=== PATIENT | female | born 1990 | race Caucasian/White ===

== ENCOUNTER 2021-12-10 14:57 | Outpatient (REF) | payer OTHER, SELFPAY ==
--- NOTE | 2021-12-10 13:15 | SKI_PTH ---
PATIENT: Georgia Brito LOC: [facility] U#:[id number] AGE/SX: 31/F ROOM: RE12/10/[address]: Matthew Tapia DO : 1990 BED: DIS: 12/10/2021 SPEC #: [id number] RECD: 12/10/21 17:31 STATUS: SAMEERA REQ #: [id number] ROMERO: 12/10/21 13:[address]: Matthew Tapia DEPT: Surgical Specimen RECD BY: Janice Matthews ENTERED: 12/10/21 17:31 SP TYPE: RADHA BRASWELL DR: Natty Orellana Tissues: 1 - SKIN BIOPSY(SHAVE/PUNCH) Procedures: SKIN LEVEL 4 Comments: [id number]
== END 2021-12-10 14:58 | disposition home or self-care (01) ==
LOC: LBN 14:57
PROVIDERS: PCP Nurse Practitioner Women's Health; Visit Provider Otolaryngology Otolaryngology/Facial Plastic Surgery
DX: D22.39 Melanocytic nevi of other parts of face (principal)
CPT/HCPCS: 88305